=== PATIENT | female | born 1980 | race Caucasian/White ===

== ENCOUNTER 2016-09-09 01:44 | Emergency (ER) | payer OTHER ==
[~2016-09-09] VITALS: Ht 157.5 cm; Wt 127.0 kg
[2016-09-09 01:45] VITALS: BP 154/94; PULSE 110; RESP 20; TEMP 97.1; O2SAT 100
[2016-09-09] MEDS ORDERED: NACL 0.9% 1,000 ML IV ONE (02:13)
[2016-09-09] MEDS ORDERED: ONDANSETRON HCL 4 MG/2 ML VIAL IVP ONE (02:15)
[2016-09-09] MEDS ORDERED: KETOROLAC TROMETHAMINE 30 MG VIAL IVP ONE (02:15)
[2016-09-09] MEDS ORDERED: MAG HYDROX/AL HYDROX/SIMETH 30 ML, BELLADONNA ALKALOIDS/PHENOBARB 10 ML, LIDOCAINE VISC... PO ONE ×3 (02:15)
[2016-09-09] MEDS ORDERED: PROCHLORPERAZINE EDISYLATE 10 MG/2 ML VIAL IVP ONE (02:15)
[2016-09-09 02:40] LABS: BASOPHILS # (AUTO) 0.2 K/uL (0.0-0.2); BASOPHILS % (AUTO) 1.5 % (0.0-2.0); EOSINOPHILS # (AUTO) 0.1 K/uL (0.0-0.4); EOSINOPHILS % (AUTO) 0.5 % (0.0-4.0); HEMATOCRIT 45.9 % (36-48); HEMOGLOBIN 15.2 g/dL (12.0-16.0); LYMPHOCYTES # (AUTO) 0.9 K/uL (1.0-5.5); LYMPHOCYTES % (AUTO) 5.9 % (20.5-51.5); MEAN CORPUSCULAR HEMOGLOBIN 30 pg (27-31); MEAN CORPUSCULAR HGB CONC 33 % (32-36); MEAN CORPUSCULAR VOLUME 91 fL (79.0-98.0); MONOCYTES # (AUTO) 0.6 K/uL (0.0-1.0); MONOCYTES % (AUTO) 4.3 % (1.7-9.3); NEUTROPHILS # (AUTO) 13.2 K/uL (1.8-7.7); NEUTROPHILS % (AUTO) 87.8 % (40.0-70.0); PLATELET COUNT (AUTO) 282 K/uL (130-430); RED BLOOD CELL COUNT(AUTO) 5.03 MIL/uL (4.2-6.2); RED CELL DISTRIBUTION WIDTH 12.1 % (9.0-15.0)
[2016-09-09 02:45] LABS: CALCIUM 8.8 mg/dL (8.4-11.0); CREATININE 0.94 mg/dL (0.55-1.30); POTASSIUM 3.9 mmol/L (3.5-5.1)
[2016-09-09 02:49] LABS: ALBUMIN 3.9 g/dL (3.4-4.8); TOTAL BILIRUBIN 0.6 mg/dL (0.0-1.0); TOTAL PROTEIN, SERUM 7.9 g/dL (6.4-8.3)
[2016-09-09 03:54] LABS: BILIRUBIN,URINE 1+ (NEGATIVE); BLOOD, URINE NEGATIVE (NEGATIVE); CLARITY/URINE CLEAR (CLEAR); GLUCOSE,URINE NEGATIVE (NEGATIVE); KETONES,URINE TRACE (NEGATIVE); LEUKOCYTE ESTERASE ,URINE NEGATIVE (NEGATIVE); NITRITE, URINE NEGATIVE (NEGATIVE); PH,URINE 5.5 (5.0-8.0); PROTEIN URINE 2+ (NEGATIVE); UROBILINOGEN,URINE 0.2 (0.2-1.0)
[2016-09-09 04:02] LABS: COLOR,URINE YELLOW (YELLOW)
[2016-09-09 04:06] LABS: BACTERIA,URINE FEW /HPF (None Seen); RBC,URINE 0-3 /HPF (0-3)
[2016-09-09 04:07] LABS: MUCUS,URINE 1+ /LPF (None Seen)
[2016-09-09 05:23] VITALS: BP 124/76; PULSE 71; RESP 17; TEMP 97.7; O2SAT 100
== END 2016-09-09 05:23 | disposition home or self-care (01) ==
LOC: SED 01:44
DX: K52.9 Noninfective gastroenteritis and colitis, unspecified (principal); R03.0 Elevated blood-pressure reading, without diagnosis of hypertension; F41.9 Anxiety disorder, unspecified; Z90.49 Acquired absence of other specified parts of digestive tract
CPT/HCPCS: 36415; 74176; 80053; 81000; 83690; 84703; 85025; 96361; 96374; 96375; 99285; J0780; J2001; J2405; J7030; J1885

== ENCOUNTER 2018-10-06 21:20 | Emergency (ER) | payer MEDICAID, OTHER ==
[~2018-10-06] VITALS: Ht 157.5 cm; Wt 137.0 kg
[2018-10-06 21:27] VITALS: BP_SYST 139
--- NOTE | 2018-10-06 21:35 | NUR ---
Patient triaged and placed in waiting room. VSS and patient appears in no acute distress at this time. Accompanied by aunt, awaiting available bed, and MD notified of need for MSE.
--- NOTE | 2018-10-06 22:11 | NUR ---
Patient to ER bed 07 to gown for evaluation. Side rails up. Report given to JULIETH Campbell
--- NOTE | 2018-10-06 22:15 | NUR ---
Pt complains of cough for the past week and a half. Pt was given Zpak and finished regimen but cough had gotten worse. Per pt, she visited urgent care earlier today but when they checked her blood pressure it was high in the 200's systolic. Pt was given Clonidine 0.1 mg and rechecked BP and was 208 systolic. Pt was referred to ED due to high blood pressure and no prescriptions were sent home. Pt also complain of chest wall pain due to coughing. She feels as if there's something stuck in her chest but cannot spit it out. Pt denies fever. No other injuries/complaints per patient or noted.
--- NOTE | 2018-10-06 23:10 | NUR ---
moved to H1
--- NOTE | 2018-10-06 23:11 | NUR ---
ER Dr. Coronado at bedside examining patient.
[2018-10-07 01:12] VITALS: BP_SYST 132
--- NOTE | 2018-10-07 01:12 | NUR ---
Patient given written and verbal discharge instructions and verbalizes understanding. ER MD discussed with patient the results and treatment provided. Patient in stable condition. ID arm band removed. No Rx given. Patient educated on pain management and to follow up with PMD. Pain Scale 0. Opportunity for questions provided and answered. Medication side effect fact sheet provided.
== END 2018-10-07 01:12 | disposition home or self-care (01) ==
LOC: SED 21:20
DX: J20.9 Acute bronchitis, unspecified (principal); F41.9 Anxiety disorder, unspecified
CPT/HCPCS: 71046-TC; 93005; 99283

== ENCOUNTER 2019-09-03 | Emergency (ER) | payer MEDICAID ==
[~2019-09-03] VITALS: Ht 157.5 cm; Wt 108.9 kg
[2019-09-03 00:05] VITALS: BP_SYST 148
[2019-09-03] MEDS ORDERED: LEVOFLOXACIN 500 MG TABLET PO ONE (00:30)
[2019-09-03] MEDS ORDERED: SULFAMETHOXAZOLE/TRIMETHOPR DS 1 TABLET PO ONE (00:30)
[2019-09-03] MEDS ORDERED: IBUPROFEN 600 MG TABLET PO ONE (00:30)
[2019-09-03 00:40] VITALS: BP_SYST 144
== END 2019-09-03 00:40 | disposition home or self-care (01) ==
LOC: SED
DX: K13.0 Diseases of lips (principal); F41.9 Anxiety disorder, unspecified
CPT/HCPCS: 99283

== ENCOUNTER 2020-06-25 20:04 | Emergency (ER) | payer MEDICAID ==
[~2020-06-25] VITALS: Ht 157.5 cm; Wt 88.0 kg
[2020-06-25 20:21] VITALS: BP_SYST 136
--- NOTE | 2020-06-25 21:18 | NUR ---
Patient to ER bed 4 to gown for evaluation. Side rails up. Report RECEIVED FROM JULIETH MASON.
--- NOTE | 2020-06-25 21:30 | NUR ---
ER Dr. AGUILERA at bedside examining patient.
--- NOTE | 2020-06-25 21:35 | NUR ---
PT A&O X4 FROM HOME C/O VAGINAL SPOTTING FOR 2 HOURS, DARK BROWN BLOOD. PT REPORTS CRAMPING LIKE SENSATION BUT DENIES ABDOMINAL PAIN. PT REPORTS SHE IS 8 WEEKS AND HAS APPOINTMENT WITH [facility] IN A WEEK. PT FIRST . PT DENIES NAUSES, VOMITING.
--- NOTE | 2020-06-25 21:55 | NUR ---
# 20 gauge angiocath placed to LEFT AC. Use of asceptic technique. Opsite placed over site. Blood return noted. Blood for lab drawn from site. Flushed with 10 cc of normal saline. No evidence of infiltration noted. Patient tolerated well.
--- NOTE | 2020-06-25 22:10 | NUR ---
PT TAKEN TO ULTRASOUND WITH TECH.
[2020-06-25 22:11] LABS: BASOPHILS # (AUTO) 0.2 K/uL (0.0-0.2); BASOPHILS % (AUTO) 1.6 % (0.0-2.0); EOSINOPHILS # (AUTO) 0.2 K/uL (0.0-0.4); EOSINOPHILS % (AUTO) 1.6 % (0.0-4.0); HEMATOCRIT 38.3 % (36-48); HEMOGLOBIN 13.4 g/dL (12.0-16.0); LYMPHOCYTES # (AUTO) 2.5 K/uL (1.0-5.5); LYMPHOCYTES % (AUTO) 25.3 % (20.5-51.5); MEAN CORPUSCULAR HEMOGLOBIN 32 pg (27-31); MEAN CORPUSCULAR HGB CONC 35 % (32-36); MEAN CORPUSCULAR VOLUME 92 fL (79.0-98.0); MONOCYTES # (AUTO) 0.6 K/uL (0.0-1.0); MONOCYTES % (AUTO) 6.6 % (1.7-9.3); NEUTROPHILS # (AUTO) 6.4 K/uL (1.8-7.7); NEUTROPHILS % (AUTO) 64.9 % (40.0-70.0); PLATELET COUNT (AUTO) 182 K/uL (130-430); RED BLOOD CELL COUNT(AUTO) 4.17 MIL/uL (4.2-6.2); RED CELL DISTRIBUTION WIDTH 12.8 % (9.0-15.0); WHITE BLOOD COUNT (AUTO) 9.8 K/uL (4.8-10.8)
[2020-06-25 22:31] LABS: CALCIUM 8.6 mg/dL (8.4-11.0); POTASSIUM 3.3 mmol/L (3.5-5.1)
[2020-06-25 22:32] LABS: CREATININE 0.69 mg/dL (0.55-1.30)
[2020-06-25 22:37] LABS: BILIRUBIN,URINE NEGATIVE (NEGATIVE); BLOOD, URINE 3+ (NEGATIVE); COLOR,URINE YELLOW (YELLOW); GLUCOSE,URINE NEGATIVE (NEGATIVE); KETONES,URINE NEGATIVE (NEGATIVE); LEUKOCYTE ESTERASE ,URINE NEGATIVE (NEGATIVE); NITRITE, URINE NEGATIVE (NEGATIVE); PROTEIN URINE NEGATIVE (NEGATIVE); UROBILINOGEN,URINE 0.2 (0.2-1.0)
--- NOTE | 2020-06-25 22:38 | NUR ---
Returned from radiology, back to [facility].
[2020-06-25 22:54] LABS: CLARITY/URINE SLIGHTLY HAZY (CLEAR)
[2020-06-25 23:06] VITALS: BP_SYST 120
[2020-06-25 23:11] LABS: BACTERIA,URINE FEW /HPF (None Seen); MUCUS,URINE None Seen /LPF (None Seen)
== END 2020-06-25 23:06 | disposition home or self-care (01) ==
LOC: SED 20:04
DX: O20.0 Threatened abortion (principal); O20.9 Hemorrhage in early pregnancy, unspecified; Z3A.08 8 weeks gestation of pregnancy; Z90.49 Acquired absence of other specified parts of digestive tract
CPT/HCPCS: 36415; 76830-TC; 76856-TC; 76857; 80048; 81000-TC; 81025; 84702-TC; 85025; 86900; 86901; 99284

== ENCOUNTER 2020-07-12 15:02 | Emergency (ER) | payer MEDICAID ==
[~2020-07-12] VITALS: Ht 154.9 cm; Wt 86.6 kg
[2020-07-12 15:11] VITALS: BP_SYST 153
[2020-07-12 17:34] LABS: BILIRUBIN,URINE NEGATIVE (NEGATIVE); BLOOD, URINE 2+ (NEGATIVE); CLARITY/URINE CLEAR (CLEAR); COLOR,URINE YELLOW (YELLOW); GLUCOSE,URINE NEGATIVE (NEGATIVE); KETONES,URINE TRACE (NEGATIVE); LEUKOCYTE ESTERASE ,URINE NEGATIVE (NEGATIVE); NITRITE, URINE NEGATIVE (NEGATIVE); PROTEIN URINE 1+ (NEGATIVE)
[2020-07-12 17:57] LABS: BACTERIA,URINE FEW /HPF (None Seen); RBC,URINE 0-3 /HPF (0-3); WBC,URINE NONE SEEN /HPF (0-3)
[2020-07-12] MEDS ORDERED: CEPH-568 PO (18:12)
[2020-07-12 18:23] VITALS: BP_SYST 105
== END 2020-07-12 18:25 | disposition home or self-care (01) ==
LOC: SED 15:02
DX: O20.0 Threatened abortion (principal); O23.11 Infections of bladder in pregnancy, first trimester; Z3A.08 8 weeks gestation of pregnancy
CPT/HCPCS: 36415; 76801; 76817; 81000-TC; 84702-TC; 99284

== ENCOUNTER 2020-10-19 20:55 | Observation (INO) | payer MEDICAID ==
[~2020-10-19 20:55] MED LIST: CEPH-568 PO
== END 2020-10-19 23:05 | disposition home or self-care (01) ==
LOC: SPU 20:55
PROVIDERS: ADMIT Obstetrics & Gynecology; ATTEND Obstetrics & Gynecology
DX: O26.892 Other specified pregnancy related conditions, second trimester (principal); R10.30 Lower abdominal pain, unspecified; R10.2 Pelvic and perineal pain; Z3A.24 24 weeks gestation of pregnancy
CPT/HCPCS: G0378